=== PATIENT | female | born 1995 | race Caucasian/White ===

== ENCOUNTER 2017-06-27 15:30 | Emergency (ER) | payer OTHER, SELFPAY ==
[2017-06-27 15:31] VITALS: BP 109/70; PULSE 79; RESP 18; TEMP 37; O2SAT 100; BMI 22.8
--- NOTE | 2017-06-27 15:46 | CT_ITS ---
STUDY: CT THORACIC SPINE WITH CONTRAST REASON FOR EXAM: Female, 22 years old. SKYDIVING-LANDED ON BUTT AND BOUNCED A COUPLE OF TIMES,SEVERE LBP, UNABLE TO BEAR WT,HX-LUPUS, CELIAC DZ, Sjogren's RADIATION DOSAGE (If Supplied By Facility): CTDIvol = ( 18.97 ) mGy, DLP = ( 1538 ) mGycm TECHNIQUE: The patient was scanned in a multi detector CT scanner. High resolution imaging was performed following the intravenous administration of 100 ml of Isovue 300 contrast material. Sagittal and coronal images were reconstructed. Individualized dose optimization techniques were used for this CT. COMPARISON: None. FINDINGS: Patient was scanned in a right anterolateral abdominal wall. There is a T12 compression fracture as described on the CT lumbar spine of the same day. There is T3 mild superior endplate compression deformity appearing chronic. Normal visualized cervical spine. Normal kyphosis of the thoracic spine. There is no substantial scoliosis. Normal disc spaces heights. There are multilevel Schmorl nodes. There is suggestion of mild hyperdensity in the central canal posterior to the thecal sac extending along the entire thoracic spine, and subdural hemorrhage is not excluded. CT/Spine Thoracic WITH Contrast IMPRESSION: There is a T12 compression fracture as described on the CT lumbar spine of the same day. There is suggestion of mild hyperdensity in the central canal extending along the entire thoracic spine, and subdural hemorrhage is not excluded. An MRI could provide further evaluation if clinically indicated. N.B. : The above information has been verbally conveyed by Rosy Fischer MD to Dr. Rob Van, Covering Physician, on 06/27/2017 17:54:47 (ET). Electronically Signed: Rosy Fischer MD at 17:53 EDT , Service support , N.B. : The above information has been verbally conveyed by Rosy Fischer MD to Dr. Rob Van, Covering Physician, on 06/27/2017 17:54:47 (ET).
--- NOTE | 2017-06-27 15:47 | CT_ITS ---
STUDY: CT ABDOMEN AND PELVIS WITH CONTRAST REASON FOR EXAM: Female, 22 years old. SKYDIVING-LANDED ON BUTT AND BOUNCED A COUPLE OF TIMES,SEVERE LBP, UNABLE TO BEAR WT,HX-LUPUS, CELIAC DZ, Sjogren's RADIATION DOSAGE (If Supplied By Facility): CTDIvol = ( 18.97 ) mGy, DLP = ( 1538 ) mGycm TECHNIQUE: Transaxial images were obtained from the dome of the diaphragm to the symphysis pubis without oral contrast. 100 ml of Isovue 300 contrast was administered. Sagittal and coronal images were reconstructed. Individualized dose optimization techniques were used for this CT. COMPARISON: None. FINDINGS: The patient was scanned on her right anterolateral abdominal wall. The visualized lung bases are unremarkable. The visualized portions of the heart are within normal limits. Normal liver. Normal gallbladder and extrahepatic biliary system. Normal spleen. Normal pancreas. Normal bilateral adrenal glands. Normal right kidney. Normal left kidney. Normal visualized stomach. Normal small intestine. There is retained stool throughout the colon. Normal abdominal aorta. Normal inferior vena cava. In the mid and lower right anterior abdomen there is mild hyperdensity throughout the mesentery, between small bowel loops. It is of uncertain etiology and could represent acute hemorrhage or small bowel loops, although the appearance for both is atypical. There is mild free fluid in the right paracolic gutter. Normal urinary bladder. There is a small umbilical hernia containing fat. There is sacralization of L5 on the left, fused with S1. There is an acute T12 compression fracture. CT/Abdomen/Pelvis W IV Cont ONLY IMPRESSION: In the mid and lower right anterior abdomen there is mild hyperdensity throughout the mesentery. It is of uncertain etiology and could represent acute hemorrhage or small bowel loops, although the appearance for both is atypical. There is mild free fluid in the right paracolic gutter. There is an acute T12 compression fracture. N.B. : The above information has been verbally conveyed by Rosy Fischer MD to Dr. Sole Kaiser, Referring Physician, on 06/27/2017 17:38:23 (ET). Electronically Signed: Rosy Fischer MD at 17:38 EDT , Service support , N.B. : The above information has been verbally conveyed by Rosy Fischer MD to Dr. Sole Kaiser, Referring Physician, on 06/27/2017 17:38:23 (ET).
[2017-06-27] MEDS: Morphine 4 MG/ML Syringe IV (15:57)
[2017-06-27] MEDS: Ondansetron 4 MG/2 ML Vial IV ×2 (15:57→18:27)
[2017-06-27] MEDS: 0.9% Normal Saline 1,000 ML 150 ML IV (15:57)
--- NOTE | 2017-06-27 15:59 | CT_ITS ---
STUDY: CT LUMBAR SPINE WITH CONTRAST REASON FOR EXAM: Female, 22 years old. SKYDIVING-LANDED ON BUTT AND BOUNCED A COUPLE OF TIMES,SEVERE LBP, UNABLE TO BEAR WT,HX-LUPUS, CELIAC DZ, Sjogren's RADIATION DOSAGE (If Supplied By Facility): CTDIvol = ( 18.97 ) mGy, DLP = ( 1538 ) mGycm TECHNIQUE: The patient was scanned in a multi detector CT scanner. High resolution transaxial imaging was performed following the intravenous administration of 100 ml of Isovue 300 contrast material. Sagittal and coronal images were reconstructed. Individualized dose optimization techniques were used for this CT. COMPARISON: None FINDINGS: Patient was scanned on her right anterolateral abdominal wall. Normal lumbar lordosis. There is no substantial scoliosis. There is no spondylolisthesis. There is disk narrowing at L5/S1. There is an acute T12 superior endplate compression fracture. There is one quarter loss of height. There is mild retropulsion of the posterior superior vertebral body wall causing impression on the ventral thecal sac. There is sacralization of L5 on the left, fused with S1. CT/Spine Lumbar WITH Contrast IMPRESSION: There is an acute T12 compression fracture. Electronically Signed: Rosy Fischer MD at 17:41 EDT , Service support ,
[2017-06-27 16:26] LABS: Absolute Lymphocyte Count 1.11 X10^3/ul (0.83-4.51); Absolute Neutrophil Count 7.6 X10^3/uL (2.0-7.7); Basophil# 0.02 X10^3/uL; Basophil% 0.2 % (0-1); Eosinophil# 0.06 X10^3/uL; Eosinophils% 0.6 % (0-5); Hematocrit 41.2 % (37-47); Hemoglobin 13.8 g/dl (12.0-15.0); Lymphocyte # 1.11 X10^3/ul (4.0); Lymphocyte % 11.8 % (19-41); Mean Corp Hgb Conc 33.5 g/gl (32-36); Mean Corpuscular Hgb 27.5 pg (27.0-32.0); Mean Corpuscular Volume 82.2 fL (81-99); Mean Platelet Vol. 9.3 fl (6.2-12.0); Monocyte# 0.55 X10^3/uL; Monocyte% 5.9 % (0-10); Neutrophil # 7.61 X10^3/uL (2.7-7.7); Neutrophil % 81.2 % (47-70); POSITIVE COUNT NO; POSITIVE DIFFERENTIAL NO; POSITIVE MORPHOLOGY NO; Platelet Count 281 K/mm3 (150-450); RBC Distribution Width SD 38.7 fl (35.1-43.9); Red Blood Count 5.01 M/mm3 (4.2-5.4); White Blood Count 9.4 K/mm3 (4.4-11.0)
--- NOTE | 2017-06-27 16:26 | ED.DCSUM_ITS ---
- ER Visit Summary Date of Service: 06/27/17 Chief Complaint: Back injury History of Present Illness: The patient is a 22 F who was skydiving today. Patient states coming down to land she landed on her buttocks and bounced a few times. She is now complaining of severe back pain. She denies pain in her legs but has not tried to get up to ambulate. She denies paresthesias in her legs. She denies striking her head. She has no neck pain. Physical Examination: Vital signs are unremarkable. Patient is lying on her right side and immobilized by EMS. Head neck examination reveals no obvious external sign of trauma. She has no C- spine tenderness. Heart is regular rate and rhythm. Lung sounds are clear. Abdomen is soft and nontender. Back examination was reducible tenderness in the lower thoracic and upper lumbar midline region. There is no ecchymosis. She has no tenderness over the sacrum or posterior pelvis. Lower extremity examination reveals strong distal pulses. She is able to wiggle her toes and has normal sensation throughout her legs. Test Results: CBC and chemistry studies are unremarkable. test is negative. CT scan of the T-spine shows a T12 compression fracture. There is a suggestion of mild hyperdensity in the central canal. Subdural cannot be completely excluded. CT the abdomen and pelvis shows mild hyperdensity in the lower mesentery. This could represent acute hemorrhage or bowel loops, but it is a typical presentation for this. T12 compression fracture is again noted. CT the lumbar spine reconstructions showed acute T12 compression fracture. Emergency Department Course and Treatment: Patient was initially given morphine , Zofran, and IV fluids followed by couple doses of Dilaudid. Multiple repeat examinations revealed no change in her neurologic exam. Patient was discussed with the patient's father who is a emergency room physician at [facility] in [place]. He asked that the patient be transferred to [facility]. I spoke with their patient access coordinator and patient has been accepted. Treatment Plan: [] Disposition: Transfer Impression: 1. Fall with T12 compression fracture This note was generated with Save[employer] dictation software. It may contain incorrect words, spelling, and punctuation that were not noted in review of the chart prior to signing ED Disposition - Plan for ED Patient: Disposition: Acute Care Hospital - Other Chief Complaint: Trauma Referrals: NOT,DEFINED [NON-STAFF] -
[2017-06-27 16:39] LABS: Anion Gap 7 (5-15); BUN 11 mg/dL (7-18); BUN/Creat Ratio 17.1 RATIO (10-20); Calcium,Total 8.9 mg/dL (8.5-10.1); Chloride 108 mmol/L (98-107); Creatinine, Serum 0.64 mg/dL (0.55-1.02); EST Glomerular Filtration Rate 123 mL/min (>60); Est Glom Filt Rate - Afr Amer 149 mL/min (>60); Estimated Creatinine Clearance 130.17 ml/min; Glucose 80 mg/dL (74-106); Potassium 3.5 mmol/L (3.5-5.1); Sodium Level 138 mmol/L (136-145)
[2017-06-27] MEDS: HYDROmorphone 1 MG/ML Syringe 0.5 MG IV ×2 (17:13→18:27)
[2017-06-27 17:14] VITALS: BP 145/70; PULSE 84; RESP 18; O2SAT 100
[2017-06-27 17:18] LABS: Pregnancy, Serum, hCG Quali. NEGATIVE Negative (0-9 Nonpreg)
[2017-06-27 18:00] VITALS: BP 133/87; RESP 18; O2SAT 100
[2017-06-27 18:26] VITALS: BP 133/87; PULSE 96; RESP 16; O2SAT 100
[2017-06-27 19:04] VITALS: BP 116/52; PULSE 95; RESP 16; O2SAT 97
== END 2017-06-27 19:26 | disposition short-term general hospital (02) ==
LOC: ED 17:10
PROVIDERS: Emergency Provider Emergency Medicine
DX: S22.089A Unspecified fracture of T11-T12 vertebra, initial encounter for closed fracture (principal); W17.89XA Other fall from one level to another, initial encounter; Y93.89 Activity, other specified; Y92.9 Unspecified place or not applicable; K90.0 Celiac disease; M35.00 Sjogren syndrome, unspecified; Z79.899 Other long term (current) drug therapy
CPT/HCPCS: 36415; 51702; 72129; 72132; 74177; 80048; 84703; 85025; 96361; 96374; 96375; 96376; 99285; J7030; Q9967; A4216; J2405